=== PATIENT | male | born 1975 | race Caucasian/White ===

== ENCOUNTER 2024-10-10 20:44 | Emergency (ER) | payer SELFPAY ==
[~2024-10-10] VITALS: Ht 177.8 cm; Wt 108.0 kg
[2024-10-10 20:47] VITALS: O2SAT 97
[2024-10-10] MEDS: METHYLPREDNISOLONE SOD SUCC 125MG/2ML (ACT-O-VIAL) IV ONE (21:42)
[2024-10-10] MEDS: FAMOTIDINE 20MG/2ML VIAL IV ONE (21:43)
[2024-10-11 00:55] VITALS: BP 142/77; PULSE 85; RESP 19; TEMP 36.6; O2SAT 97
== END 2024-10-11 00:55 | disposition home or self-care (01) ==
LOC: ER 20:44
DX: R06.02 Shortness of breath (principal); E78.00 Pure hypercholesterolemia, unspecified; I10 Essential (primary) hypertension
CPT/HCPCS: 70360; 71045; 96374; 96375; 99284; J3490; J2919; Z7610 ×2